=== PATIENT | female | born 1995 ===

== ENCOUNTER 2018-10-28 22:44 | Emergency (ER) | payer OTHER ==
[~2018-10-28] VITALS: Ht 160 cm; Wt 59.9 kg
[2018-10-29] MEDS ORDERED: DOLOGESIC 500-1 EACH PO (07:04)
[2018-10-29] MEDS ORDERED: DUI500 PO (07:04)
== END 2018-10-29 07:16 | disposition home or self-care (01) ==
LOC: ER 22:44
DX: S01.81XA Laceration without foreign body of other part of head, initial encounter (principal); W45.8XXA Other foreign body or object entering through skin, initial encounter; Y93.89 Activity, other specified; Y92.098 Other place in other non-institutional residence as the place of occurrence of the external cause; Y99.8 Other external cause status